=== PATIENT | male | born 1985 | race Caucasian/White ===

== ENCOUNTER 2017-04-07 17:11 | Emergency (ER) | payer MEDICAID ==
[~2017-04-07] VITALS: Ht 188 cm; Wt 127.0 kg
[2017-04-07 17:11] VITALS: BP 128/72
[~2017-04-07 17:11] MED LIST: DILANTIN100 MG ORAL; LAMICTAL25 MG ORAL
[2017-04-07 18:08] LABS: EOSINOPHILS % (AUTO) 1.4 % (0.0-3.0); LYMPHOCYTES % (AUTO) 32.6 % (20.0-45.0); MEAN CORPUSCULAR HGB CONC 35.3 G/DL (32.0-36.0); MEAN CORPUSCULAR VOLUME 88 FL (80-99); MEAN PLATELET VOLUME 6.6 FL (6.5-10.1); MONOCYTES % (AUTO) 4.4 % (1.0-10.0); NEUTROPHILS % (AUTO) 60.6 % (45.0-75.0); PLATELET COUNT 298 K/UL (150-450); RED BLOOD COUNT 5.29 M/UL (4.70-6.10); RED CELL DISTRIBUTION WIDTH 11.4 % (11.6-14.8); WHITE BLOOD COUNT 7.7 K/UL (4.8-10.8)
[2017-04-07 18:11] LABS: ACETAMINOPHEN < 10 ug/mL (10-30); ALANINE AMINOTRANSFERASE 67 U/L (3-41); ALBUMIN/GLOBULIN RATIO 1.6 (1.0-2.7); ALCOHOL < 10 mg/dL; ANION GAP 20 (5-15); ASPARTATE AMINO TRANSFERASE 32 U/L (5-40); CALCIUM 9.3 mg/dL (8.6-10.2); CARBON DIOXIDE 21 mEQ/L (20-30); CHLORIDE 99 mEQ/L (98-107); CREATININE 1.1 mg/dL (0.7-1.2); GLOMERULAR FILTRATION RATE > 60 mL/min (>60); HEMOLYSIS 4; SODIUM 140 mEQ/L (135-145)
[2017-04-07] MEDS ORDERED: Phenytoin 1,000 MG in NS 275 ML IV ONE (19:00)
[2017-04-07 19:04] VITALS: BP 149/87
[2017-04-07] MEDS ORDERED: Phenytoin 250mg/5ml vial ONE (19:29)
[2017-04-07 19:53] VITALS: BP 118/68
[2017-04-07] MEDS ORDERED: DILANTIN100 MG ORAL (20:21)
[2017-04-07] MEDS ORDERED: IBUPROFEN600 MG ORAL (20:21)
[2017-04-07 20:34] VITALS: BP 118/68
--- NOTE | 2017-04-07 22:10 | Emergency Room Report ---
History of Present Illness General Chief Complaint: Seizure Source: Patient, EMS Present Illness HPI 32-year-old male presents ED status post seizure. Patient states he had seizure and home and fell hitting his head. Patient denies LOC. Patient notes history of seizures and takes Dilantin and Lamictal. Patient states he sometimes forgets to take his medication. Patient is complaining of headache and shoulder pain due to the fall. Pain as throbbing, 8/10, nonradiating. Denies alcohol or drug use. No aggravating relieving factors. Denies any other associated symptoms Allergies: Coded Allergies: No Known Allergies (Unverified , 04/07/17) Patient History Past Medical History: seizures Past Surgical History: none Pertinent Family History: none Social History: Denies: smoking, alcohol use, drug use Immunizations: UTD Reviewed Nursing Documentation: PMH: Agreed, PSxH: Agreed Nursing Documentation-PMH Hx Seizures: Yes Review of Systems All Other Systems: negative except mentioned in HPI Physical Exam Vital Signs Date Time Temp Pulse Resp B/P (MAP) Pulse Ox O2 Delivery O2 Flow Rate FiO2 04/07/17 17:06 98.1 86 20 128/72 100 Room Air Sp02 EP Interpretation: reviewed, normal General Appearance: no apparent distress, alert, GCS 15, non-toxic Head: normocephalic, atraumatic Eyes: bilateral eye normal inspection, bilateral eye PERRL ENT: hearing grossly normal, normal pharynx, no angioedema, normal voice Neck: full range of motion, supple/symm/no masses Respiratory: chest non-tender, lungs clear, normal breath sounds, speaking full sentences Cardiovascular #1: regular rate, rhythm, no edema Cardiovascular #2: 2+ carotid (R), 2+ carotid (L), 2+ radial (R), 2+ radial (L) , 2+ dorsalis pedis (R), 2+ dorsalis pedis (L) Gastrointestinal: normal bowel sounds, non tender, soft, non-distended, no guarding, no rebound Rectal: deferred Genitourinary: normal inspection, no CVA tenderness Musculoskeletal: back normal, gait/station normal, normal range of motion, non- tender, tender - L shoulder Neurologic: alert, oriented x3, responsive, motor strength/tone normal, sensory intact, speech normal Psychiatric: judgement/insight normal, memory normal, mood/affect normal, no suicidal/homicidal ideation Reflexes: 3+ bicep (R), 3+ bicep (L), 3+ tricep (R), 3+ tricep (L), 3+ knee (R) , 3+ knee (L) Skin: normal color, no rash, warm/dry, well hydrated Lymphatic: no adenopathy Medical Decision Making Diagnostic Impression: Primary Impression: Seizure disorder Additional Impressions: Shoulder contusion Qualified Codes: S40.012A - Contusion of left shoulder, initial encounter Noncompliance with medication regimen ER Course Hospital Course 32-year-old M presents to ED status post seizure. c/o shoulder pain and headache Differential diagnosis includes- breakthrough seizure, alcohol abuse, noncompliance with medication Clinical course Patient placed on stretcher. Initial history and physical I ordered labs, IV fluids, CT head, L shoulder, pain meds Labs-electrolytes okay, no leukocytosis, hemoglobin/hematocrit stable. dilantin level subtherapeutic EKG - NSR, no acute changes intperreted by me CT Brain ok L shoulder xray unremarkable Dilantin loading dose given. Patient has run out of medication. We'll provide him with refill Patient allowed to rest is now awake alert oriented x3. Diagnosis -seizure disorder, noncompliance with medication, shoulder contusion stable and discharged to home with Rx Dilantin. Followup with PMD. Return to ED if symptoms recur or worsen Labs Test 04/07/17 17:35 White Blood Count 7.7 K/UL (4.8-10.8) Red Blood Count 5.29 M/UL (4.70-6.10) Hemoglobin 16.4 G/DL (14.2-18.0) Hematocrit 46.4 % (42.0-52.0) Mean Corpuscular Volume 88 FL (80-99) Mean Corpuscular Hemoglobin 31.0 PG (27.0-31.0) Mean Corpuscular Hemoglobin Concent 35.3 G/DL (32.0-36.0) Red Cell Distribution Width 11.4 % (11.6-14.8) Platelet Count 298 K/UL (150-450) Mean Platelet Volume 6.6 FL (6.5-10.1) Neutrophils (%) (Auto) 60.6 % (45.0-75.0) Lymphocytes (%) (Auto) 32.6 % (20.0-45.0) Monocytes (%) (Auto) 4.4 % (1.0-10.0) Eosinophils (%) (Auto) 1.4 % (0.0-3.0) Basophils (%) (Auto) 1.0 % (0.0-2.0) Sodium Level 140 mEQ/L (135-145) Potassium Level 4.0 mEQ/L (3.4-4.9) Chloride Level 99 mEQ/L (98-107) Carbon Dioxide Level 21 mEQ/L (20-30) Anion Gap 20 (5-15) Blood Urea Nitrogen 11 mg/dL (7-23) Creatinine 1.1 mg/dL (0.7-1.2) Estimat Glomerular Filtration Rate > 60 mL/min (>60) Glucose Level 155 mg/dL (74-106) Calcium Level 9.3 mg/dL (8.6-10.2) Total Bilirubin 0.4 mg/dL (0.0-1.2) Aspartate Amino Transf (AST/SGOT) 32 U/L (5-40) Alanine Aminotransferase (ALT/SGPT) 67 U/L (3-41) Alkaline Phosphatase 75 U/L (40-129) Total Protein 7.0 g/dL (6.6-8.7) Albumin 4.4 g/dL (3.5-5.2) Globulin 2.6 g/dL Albumin/Globulin Ratio 1.6 (1.0-2.7) Acetaminophen Level < 10 ug/mL (10-30) Phenytoin (Dilantin) Level < 0.8 ug/mL (10-20) Serum Alcohol < 10 mg/dL EKG Diagnostic Results Rate: normal Rhythm: NSR ST Segments: no acute changes Rhythm Strip Diag. Results EP Interpretation: yes Rhythm: NSR, no PVC's, no ectopy Other X-Ray Diagnostic Results Other X-Ray Diagnostic Results : X-Ray ordered: L shoulder # of Views/Limited Vs Complete: 3 View Indication: Pain EP Interpretation: Yes Interpretation: no dislocation, no soft tissue swelling, no fractures Impression: No acute disease Electronically Signed by: Electronically signed by Jayant Ocampo MD CT/MRI/US Diagnostic Results CT/MRI/US Diagnostic Results : Imaging Test Ordered: CT head Impression no acute process Last Vital Signs Date Time Temp Pulse Resp B/P (MAP) Pulse Ox O2 Delivery O2 Flow Rate FiO2 04/07/17 20:34 98.1 85 18 118/68 1 Room Air Status: improved Disposition: HOME, SELF-CARE Condition: Stable Scripts Ibuprofen* (MOTRIN*) 600 Mg Tablet 600 MG ORAL Q8H Y for For Pain, #30 TAB 0 Refills Prov: JAYANT OCAMPO M.D. 04/07/17 Phenytoin Sodium Extended* (DILANTIN*) 100 Mg Capsule 200 MG ORAL THREE TIMES A DAY for 30 Days, CAP 0 Refills Prov: JAYANT OCAMPO M.D. 04/07/17 Referrals: LUIS F MAY DAVID M.D. Patient Instructions: Seizure, Adult JAYANT OCAMPO M.D. Apr 07, 2017 22:10
--- NOTE | 2017-04-08 08:39 | Diagnostic Imaging Report ---
Indications: Seizure Technique: Spiral acquisitions obtained through the brain. Angled axial and coronal 5 x 5 mm slices were reconstructed. Total dose length product 1379 mGycm. CTDI vol(s) 70 mGy. Dose reduction achieved using automated exposure control Comparison: None Findings: Low attenuation is seen in the right cerebellar hemisphere. The distribution of this suggests that it is artifactual, probably beam hardening artifact from some surgical hardware in the right side of the face. No acute intracranial hemorrhage or edema, mass effect or midline shift. Normal alvarez-white differentiation. Normal size ventricles and extra-axial CSF spaces. Intact calvarium. As mentioned earlier, there is facial surgical hardware, involving the lateral superior orbital rim and medial orbital wall on the right. There is apparent upward displacement of the coronoid process of the right mandible. The sinuses are clear. Impression: Negative for acute intracranial bleed or mass effect Evidence of prior facial trauma and surgery This agrees with the preliminary interpretation provided overnight by [facility]erad[facility] service. The CT scanner at [facility] is accredited by the [employer] and the scans are performed using protocols designed to limit radiation exposure to as low as reasonably achievable to attain images of sufficient resolution adequate for diagnostic evaluation.
--- NOTE | 2017-04-08 10:12 | Diagnostic Imaging Report ---
Indication: PAIN, status post fall Technique: 3 views of the shoulder Comparison: none Findings: No acute fractures. No dislocations. The joint spaces are preserved Impression:Negative
--- NOTE | 2017-04-08 12:52 | Cardiology Report ---
APPROVED REPORT EKG Measurement Heart [id number] [place] [id number] Normal sinus rhythm Inferior infarct, age undetermined Abnormal ECG
== END 2017-04-07 20:35 | disposition home or self-care (01) ==
LOC: EDBD 17:11 → EMR 18:00
DX: G40.909 Epilepsy, unspecified, not intractable, without status epilepticus (principal); S40.012A Contusion of left shoulder, initial encounter; W19.XXXA Unspecified fall, initial encounter; Y92.9 Unspecified place or not applicable; Z91.14 Patient's other noncompliance with medication regimen; R51 Headache
CPT/HCPCS: 36415; 70450; 73030; 80053; 80185; 80329; 82962; 85025; 93005; 96361; 96365; 99284; J1165; J7050

== ENCOUNTER 2017-05-16 11:02 | Emergency (ER) | payer MEDICAID ==
[~2017-05-16] VITALS: Ht 188 cm; Wt 127.0 kg
[~2017-05-16 11:02] MED LIST changes: +IBUPROFEN600 MG ORAL
[2017-05-16 11:08] VITALS: BP 125/86
[2017-05-16] MEDS ORDERED: LAMICTAL150 MG ORAL ×2 (11:14→11:29)
[2017-05-16] MEDS ORDERED: DILANTIN100 MG ORAL (11:14)
[2017-05-16] MEDS ORDERED: PHENYTOIN SODI100 MG ORAL (11:29)
--- NOTE | 2017-05-16 11:29 | Emergency Room Report ---
History of Present Illness General Chief Complaint: Seizure Source: Patient Present Illness HPI 32-year-old male history of seizures, known for more than 20 years, presents with seizure. Patient states that he ran out of his Lamictal and his phenytoin 3 days ago. Has not been able to see a neurologist as he just moved here. States that yesterday his son and ex- told him that he had a generalized tonic-clonic seizure lasting 2 minutes while in bed. Patient woke up very confused, left-sided tongue biting, no urinary or fecal incontinence. Patient did not go to ER patient slept. Patient states his last seizure was more than 10 years ago as he has been compliant with his medications. Denies any current headache blurry vision neck pain nausea vomiting fever chills abdominal pain chest pain shortness of breath Allergies: Coded Allergies: No Known Allergies (Unverified , 04/07/17) Patient History Past Medical History: see triage record Past Surgical History: none Pertinent Family History: none Reviewed Nursing Documentation: PMH: Agreed, PSxH: Agreed Nursing Documentation-PMH Hx Seizures: Yes Review of Systems All Other Systems: negative except mentioned in HPI Physical Exam Vital Signs Date Time Temp Pulse Resp B/P (MAP) Pulse Ox O2 Delivery O2 Flow Rate FiO2 05/16/17 11:08 98.2 100 16 125/86 97 Room Air Sp02 EP Interpretation: reviewed, normal General Appearance: normal inspection, well appearing, no apparent distress, alert, GCS 15, non-toxic Head: normocephalic, atraumatic Eyes: bilateral eye normal inspection, bilateral eye PERRL, bilateral eye EOMI ENT: normal pharynx, normal voice, moist mucus membranes, other - Abrasion noted to the left lateral tongue no bleeding Neck: normal inspection, full range of motion, supple Respiratory: normal inspection, lungs clear, normal breath sounds, no respiratory distress, no retraction, no wheezing, speaking full sentences, chest symmetrical Cardiovascular #1: normal inspection, regular rate, rhythm, no edema, normal capillary refill Cardiovascular #2: 2+ radial (R), 2+ radial (L) Gastrointestinal: normal inspection, non tender, soft, non-distended, no guarding Genitourinary: no CVA tenderness Musculoskeletal: normal inspection, back normal, normal range of motion, non- tender Neurologic: normal inspection, alert, oriented x3, responsive, personalized living assistant III-XII nml as tested, motor strength/tone normal, sensory intact, cerebellar normal, normal gait, speech normal Psychiatric: normal inspection, judgement/insight normal, memory normal Skin: normal inspection, normal color, no rash, warm/dry, well hydrated, normal turgor Medical Decision Making Diagnostic Impression: Primary Impression: Seizure disorder Additional Impression: Encounter for medication refill ER Course 32-year-old male with history of seizures with p/w seizure DDX: Primary seizure, triggered by infection UTI/PNA vs. dehydration vs. medication non compliance Electrolyte disturbance: hypoglycemia vs. hyponatremia vs. hypocalcemia vs. hypomagnesemia Cardiac: Arrythmia/acs No indication for CT at this time given seizure likely secondary to make an patient noncompliance rather than head bleed/ stroke, no history of trauma, no neurological signs or symptoms at this time Plan: BGM EKG Labs, seizure medication levels, tox labs Will give patient's Lamictal and load with phenytoin ER course: No further seizures in ED Has been stable during ED stay. AOx4, no neurological signs or symptoms. Received medications Disposition: Patient will be discharged to home. Patient instructed to be compliant with anti seizure medications Refills given of his Lamictal and phenytoin Patient is to follow up with their primary care doctor in 5 days and neurologist within 1 week. Strict return precautions discussed such as severe headache, fever, chills, neck pain, prolonged or increased frequency of seizures. Patient verbalized understanding and agrees with plan. EKG Diagnostic Results EP Interpretation: Yes Rate: normal Rhythm: NSR ST Segments: No acute changes ASA given to patient: No Rhythm Strip EP Interpretation: Yes Rate: 82 Rhythm: NSR, no PVCs, no ectopy Chest X-ray CXR: Ordered: Yes 1 view Indication: Chest pain EP interpretation: Yes Interpretation: No consolidation, no effusion, no PTX, no acute cardiopulmonary disease Impression: No acute disease Electronically signed by Dinora Mcginnis MD Last Vital Signs Date Time Temp Pulse Resp B/P (MAP) Pulse Ox O2 Delivery O2 Flow Rate FiO2 05/16/17 11:08 98.2 100 16 125/86 97 Room Air Disposition: HOME, SELF-CARE Condition: Improved Scripts Phenytoin Sodium Extended* (PHENYTOIN SODIUM EXTENDED*) 100 Mg Capsule 200 MG ORAL TID for 7 Days, #84 CAP 0 Refills Prov: Dinora Mcginnis M.D. 05/16/17 Lamotrigine* (LAMICTAL*) 150 Mg Tablet 150 MG ORAL TWICE A DAY for 14 Days, #28 TAB 0 Refills Prov: Dinora Mcginnis M.D. 05/16/17 Patient Instructions: Seizure, Adult Dinora Mcginnis M.D. May 16, 2017 11:29
[2017-05-16] MEDS ORDERED: LaMICtal 150mg tab ORAL ONE (11:30)
[2017-05-16] MEDS ORDERED: Phenytoin 1,000 MG in NS 275 ML IVPB ONE (11:30)
[2017-05-16] MEDS ORDERED: Phenytoin 250mg/5ml vial ONE (11:48)
[2017-05-16 12:22] LABS: BASOPHILS % (AUTO) 0.5 % (0.0-2.0); EOSINOPHILS % (AUTO) 0.1 % (0.0-3.0); LYMPHOCYTES % (AUTO) 13.5 % (20.0-45.0); MEAN CORPUSCULAR HEMOGLOBIN 31.6 PG (27.0-31.0); MEAN CORPUSCULAR HGB CONC 35.8 G/DL (32.0-36.0); MEAN CORPUSCULAR VOLUME 88 FL (80-99); MEAN PLATELET VOLUME 6.6 FL (6.5-10.1); MONOCYTES % (AUTO) 4.4 % (1.0-10.0); NEUTROPHILS % (AUTO) 81.4 % (45.0-75.0); PLATELET COUNT 336 K/UL (150-450); RED BLOOD COUNT 5.35 M/UL (4.70-6.10); RED CELL DISTRIBUTION WIDTH 11.4 % (11.6-14.8); WHITE BLOOD COUNT 11.4 K/UL (4.8-10.8)
[2017-05-16 12:46] LABS: ANION GAP 11 mmol/L (5-15); CALCIUM 8.9 MG/DL (8.5-10.1); CARBON DIOXIDE 23 MMOL/L (21-32); CHLORIDE 105 MMOL/L (98-107); CREATININE 1.2 MG/DL (0.55-1.30); GLOMERULAR FILTRATION RATE > 60 mL/min (>60); POTASSIUM 3.7 MMOL/L (3.5-5.1); SODIUM 139 MMOL/L (136-145)
[2017-05-16 12:51] VITALS: BP 146/122
[2017-05-16 13:20] LABS: ACETAMINOPHEN < 10 MCG/ML (10-30); ALCOHOL < 0 mg/dL
[2017-05-16 13:35] VITALS: BP 120/74
--- NOTE | 2017-05-17 10:06 | Diagnostic Imaging Report ---
Indication: Chest pain Technique: One view of the chest Comparison: none Findings: Lungs and pleural spaces are clear. Heart size is normal Impression: No acute process
--- NOTE | 2017-05-20 18:03 | Cardiology Report ---
APPROVED REPORT EKG Measurement Heart [id number] Normal sinus rhythm Possible Inferior infarct, age undetermined Abnormal ECG
== END 2017-05-16 13:36 | disposition home or self-care (01) ==
LOC: EMR 11:30
DX: G40.909 Epilepsy, unspecified, not intractable, without status epilepticus (principal); Z76.0 Encounter for issue of repeat prescription; R07.9 Chest pain, unspecified
CPT/HCPCS: 36415; 71010; 80048; 80185; 80329; 85025; 93005; 96360; 99284; J1165; J7050

== ENCOUNTER 2017-06-10 16:46 | Emergency (ER) | payer MEDICAID ==
[~2017-06-10] VITALS: Ht 175.3 cm; Wt 90.7 kg
[~2017-06-10 16:46] MED LIST changes: +LAMICTAL150 MG ORAL; +PHENYTOIN SODI100 MG ORAL
[2017-06-10 16:50] VITALS: BP 103/75
--- NOTE | 2017-06-10 16:51 | Emergency Room Report ---
History of Present Illness General Chief Complaint: Seizure Source: Patient Present Illness HPI Patient is a 32-year-old male who presented after a witnessed seizure. The patient had prior history of seizure disorder which is long-standing. Patient had been out of his Dilantin and had not taken it for greater than 24 hours. The patient was having pain to his tongue on the left side. He denies any fever or recent illness. He had denies any neck or back pain. He reports having some generalized body. He denies severe headache Allergies: Coded Allergies: No Known Allergies (Unverified , 04/07/17) Patient History Past Medical History: seizures Reviewed Nursing Documentation: PMH: Agreed, PSxH: Agreed Nursing Documentation-PMH Past Medical History: No History, Except For Hx Seizures: Yes Review of Systems All Other Systems: negative except mentioned in HPI Physical Exam Vital Signs Date Time Temp Pulse Resp B/P (MAP) Pulse Ox O2 Delivery O2 Flow Rate FiO2 06/10/17 16:36 99.0 110 16 142/82 99 Room Air Sp02 EP Interpretation: reviewed, normal General Appearance: normal inspection, well appearing, no apparent distress, alert, GCS 15, non-toxic Head: atraumatic ENT: normal ENT inspection, hearing grossly normal, normal voice, other - left sided tongue abrasion Neck: normal inspection, full range of motion, supple, no bony tend Respiratory: normal inspection, lungs clear, normal breath sounds, no respiratory distress, no retraction, no wheezing Cardiovascular #1: regular rate, rhythm, no edema Gastrointestinal: normal inspection, normal bowel sounds, non tender, soft, no guarding, no hernia Genitourinary: no CVA tenderness Musculoskeletal: normal inspection, back normal, normal range of motion Neurologic: normal inspection, alert, responsive, speech normal Psychiatric: normal inspection, judgement/insight normal, mood/affect normal Skin: normal inspection, normal color, no rash Medical Decision Making Diagnostic Impression: Primary Impression: Epileptic seizure, generalized Additional Impression: Noncompliance with medication regimen ER Course Patient presented for seizure. Differential diagnosis included cysticercosis, medication noncompliance, electrolyte abnormality, mass lesion, or cranial hemorrhage. The patient was given IV Dilantin.Because of complexity of patient's case laboratory testing and imaging studies were ordered.Laboratory testing showed no evidence of laboratory testing to subtherapeutic Dilantin level. Patient was given IV Dilantin. Patient was also given medications for pain.The patient is advised to follow up with primary care doctor in 1-2 days. Patient is advised to return if any worsening condition or if any changes in status that are concerning. Labs Test 06/10/17 16:45 White Blood Count 11.4 K/UL (4.8-10.8) Red Blood Count 5.76 M/UL (4.70-6.10) Hemoglobin 17.0 G/DL (14.2-18.0) Hematocrit 51.3 % (42.0-52.0) Mean Corpuscular Volume 89 FL (80-99) Mean Corpuscular Hemoglobin 29.6 PG (27.0-31.0) Mean Corpuscular Hemoglobin Concent 33.2 G/DL (32.0-36.0) Red Cell Distribution Width 11.3 % (11.6-14.8) Platelet Count 353 K/UL (150-450) Mean Platelet Volume 5.5 FL (6.5-10.1) Neutrophils (%) (Auto) 52.4 % (45.0-75.0) Lymphocytes (%) (Auto) 39.8 % (20.0-45.0) Monocytes (%) (Auto) 5.8 % (1.0-10.0) Eosinophils (%) (Auto) 0.7 % (0.0-3.0) Basophils (%) (Auto) 1.3 % (0.0-2.0) Sodium Level 141 MMOL/L (136-145) Potassium Level 3.8 MMOL/L (3.5-5.1) Chloride Level 102 MMOL/L (98-107) Carbon Dioxide Level 16 MMOL/L (21-32) Anion Gap 23 mmol/L (5-15) Blood Urea Nitrogen 16 mg/dL (7-18) Creatinine 1.4 MG/DL (0.55-1.30) Estimat Glomerular Filtration Rate 58.0 mL/min (>60) Glucose Level 157 MG/DL (74-106) Calcium Level 9.3 MG/DL (8.5-10.1) Total Bilirubin 0.3 MG/DL (0.2-1.0) Aspartate Amino Transf (AST/SGOT) 23 U/L (15-37) Alanine Aminotransferase (ALT/SGPT) 43 U/L (12-78) Alkaline Phosphatase 115 U/L (46-116) Total Protein 8.3 G/DL (6.4-8.2) Albumin 4.1 G/DL (3.4-5.0) Globulin 4.2 g/dL Albumin/Globulin Ratio 1.0 (1.0-2.7) Phenytoin (Dilantin) Level < 0.4 ug/mL (10-20) EKG Diagnostic Results Rate: normal Rhythm: NSR ST Segments: no acute changes Rhythm Strip Diag. Results EP Interpretation: yes Rhythm: NSR, no PVC's, no ectopy Last Vital Signs Date Time Temp Pulse Resp B/P (MAP) Pulse Ox O2 Delivery O2 Flow Rate FiO2 06/10/17 16:36 99.0 110 16 142/82 99 Room Air Status: improved Disposition: HOME, SELF-CARE Condition: Stable Scripts Phenytoin Sodium Extended* (DILANTIN*) 100 Mg Capsule 300 MG ORAL BEDTIME, #90 CAP Prov: Kyler Whaley 06/10/17 Kyler Whaley Jun 10, 2017 16:51
[2017-06-10] MEDS ORDERED: Phenytoin 250mg/5ml vial ONE ×2 (16:54→17:39)
[2017-06-10 16:58] LABS: BASOPHILS % (AUTO) 1.3 % (0.0-2.0); EOSINOPHILS % (AUTO) 0.7 % (0.0-3.0); LYMPHOCYTES % (AUTO) 39.8 % (20.0-45.0); MEAN CORPUSCULAR HEMOGLOBIN 29.6 PG (27.0-31.0); MEAN CORPUSCULAR HGB CONC 33.2 G/DL (32.0-36.0); MEAN CORPUSCULAR VOLUME 89 FL (80-99); MEAN PLATELET VOLUME 5.5 FL (6.5-10.1); MONOCYTES % (AUTO) 5.8 % (1.0-10.0); NEUTROPHILS % (AUTO) 52.4 % (45.0-75.0); PLATELET COUNT 353 K/UL (150-450); RED BLOOD COUNT 5.76 M/UL (4.70-6.10); RED CELL DISTRIBUTION WIDTH 11.3 % (11.6-14.8); WHITE BLOOD COUNT 11.4 K/UL (4.8-10.8)
[2017-06-10] MEDS ORDERED: Phenytoin 500 MG in NS 110 ML IVPB ONE (17:00)
[2017-06-10 17:25] LABS: ANION GAP 23 mmol/L (5-15); CALCIUM 9.3 MG/DL (8.5-10.1); CARBON DIOXIDE 16 MMOL/L (21-32); CHLORIDE 102 MMOL/L (98-107); CREATININE 1.4 MG/DL (0.55-1.30); POTASSIUM 3.8 MMOL/L (3.5-5.1); SODIUM 141 MMOL/L (136-145)
[2017-06-10 17:27] LABS: ALANINE AMINOTRANSFERASE 43 U/L (12-78); ASPARTATE AMINO TRANSFERASE 23 U/L (15-37); TOTAL PROTEIN 8.3 G/DL (6.4-8.2)
[2017-06-10] MEDS ORDERED: DILANTIN100 MG ORAL (17:36)
[2017-06-10] MEDS ORDERED: NS IVPB ONE (17:45)
[2017-06-10] MEDS ORDERED: PHENYTOIN IVPB ONE (17:45)
[2017-06-10] MEDS ORDERED: Acetaminophen 500mg (ES) tab ORAL ONE (17:45)
[2017-06-10] MEDS ORDERED: Lidocaine 2% Visc 15ml soln ORAL ONE (17:45)
[2017-06-10 18:35] VITALS: BP 92/71
--- NOTE | 2017-06-13 15:36 | Cardiology Report ---
APPROVED REPORT EKG Measurement Heart [id number] [place] [id number] Sinus tachycardia Cannot rule out Anterior infarct, age undetermined Abnormal ECG
== END 2017-06-10 18:35 | disposition home or self-care (01) ==
LOC: EDBD 16:46 → EMR 17:23
DX: G40.909 Epilepsy, unspecified, not intractable, without status epilepticus (principal); Z91.19 Patient's noncompliance with other medical treatment and regimen
CPT/HCPCS: 36415; 80053; 80185; 85025; 93005; 96361; 96374; 99284; J1165; J7050